=== PATIENT | female | born 1935 | race Caucasian/White ===

== ENCOUNTER → 2023-09-17 07:56 | Outpatient (REF) | payer OTHER, SELFPAY | LOC: MRI 07:56 | PROVIDERS: ATTENDING PHYSICIAN Internal Medicine; FAMILY PHYSICIAN Family Medicine | DX: S46.219A Strain of muscle, fascia and tendon of other parts of biceps, unspecified arm, initial encounter (principal) | CPT/HCPCS: 73218 ==

== ENCOUNTER → 2024-02-04 09:15 | Outpatient (REF) | payer OTHER, SELFPAY | LOC: RAD 09:15 | PROVIDERS: ATTENDING PHYSICIAN Internal Medicine; FAMILY PHYSICIAN Family Medicine | DX: M81.0 Age-related osteoporosis without current pathological fracture (principal); M25.562 Pain in left knee | CPT/HCPCS: 73564; 77080 ==

== ENCOUNTER 2025-05-03 12:22 | Emergency (ER) | payer OTHER, SELFPAY ==
[2025-05-03 12:38] VITALS: BP 161/91
[2025-05-03 13:07] LABS: Hematocrit 40.6 % (37.0-47.0); Hemoglobin 12.3 g/dL (12.0-16.0); Mean Corp Hgb Conc. 30.3 g/dL (33.0-37.0); Mean Corpuscular Volume 84.6 fL (81.0-99.0); Nucleated Red Blood Cells % 0 %; Platelet Count 311 10^3/uL (130-400); Red Cell Dist. Width 15.4 % (11.5-14.5)
[2025-05-03 13:18] LABS: INR 0.94; PT 12.9 Sec (11.4-14.6)
[2025-05-03 13:24] LABS: ALT (SGPT) 19 U/L (0-35); AST (SGOT) 30 U/L (14-36); Albumin 4.7 g/dl (3.5-5.0); Alkaline Phosphatase 89 U/L (38-126); Blood Urea Nitrogen 14 mg/dl (7-17); Calcium 10.2 mg/dl (8.4-10.2); Carbon Dioxide 24 mmol/L (22-30); Chloride 99 mmol/L (98-107); Glucose 108 mg/dl (70-99); Potassium 4.9 mmol/L (3.5-5.1); Sodium 134 mmol/L (135-145); Total Protein 7.6 g/dl (6.3-8.2); eGFR > 60.00
[2025-05-03 13:35] LABS: Troponin I < 0.012 ng/ml
--- NOTE | 2025-05-03 14:50 | ED.GENMED ---
History of Present Illness
General
Chief Complaint: Chest Pain
Source: patient
Time Seen by Provider: 05/03/25 14:39
History of Present Illness
History of Present Illness:
89-year-old female presents to the emergency department for evaluation with her son after she states she started to feel little bit lightheaded/vertiginous while in the shower and while washing her hair started to get a pain/discomfort on the left
side of her chest accompanied with sensation of feeling flushed and palpitations, currently feeling significantly improved. Patient notes that she had a similar incident about 2 weeks ago, at that time the symptoms were a little bit more prominent
but did not last as long. Patient did not take anything for her symptoms prior to arrival. She denies any other symptoms including fevers or recent illnesses, cough, abdominal pain, nausea or vomiting, bowel changes or urinary symptoms. No known
history of cardiac disease. No history of cardiac arrhythmia. Patient is not on any anticoagulant medication. Social history was otherwise noncontributory.
Past History
Past History
ED Past Medical History: Other (Raynaud's, RA stopped methotrexate 2 mos ago due to GI symptoms, supposed to start back but has chosen not to. Followed by Dr. Gamboa.)
ED Past Surgical History: Other (agree with documented PSHX)
Social History
Tobacco: Non-smoker
Alcohol: None
Drug: None
Personal:
Living: with family
Review of Systems
Review of Systems
All Other Systems: ROS reviewed and negative except as documented in HPI and ROS
Phy Exam
Physical Exam
Physical Exam:
GENERAL: Alert , in no apparent distress
EYE: clear conjunctiva b/l
HEAD: NCAT
ENT: o/p clr, mmm.
CARDIAC: Regular rate and rhythm .
LUNGS: Clear breath sounds bilaterally, no acute respiratory distress, no wheezes/rales/rhonchi
ABDOMEN: Soft, without focal tenderness, no r/g, no cvat
NEUROLOGICAL: Alert and oriented
SKIN: Warm and dry, skin intact.
MUSCULOSKELETAL: No edema, well perfused.
PSYCH: Normal and appropriate interaction.
Scores
Heart Failure Risk
Heart Failure Risk Score: Not Applicable
Heart Score for Chest Pain Patients
STEMI patient?: No
History: Slightly or Non-Suspicious
ECG: Normal
Age: >/= 65 years
Risk Factors: No Risk Factors
Troponin: </= Normal Limit
Heart Score for Chest Pain Patients: 2
Heart Score Risk: 2.5% MACE over next 6 weeks
Withdrawal Assessment of Alcohol
Withdrawal Assessment Completed?: Not applicable
Course
Orders/Labs/Results
Orders:
Orders
05/03/25 12:23
Electrocardiogram (*1) Urgent
Reason for Study: Chest Pain
EKG- Treatment ONCE
05/03/25 12:57
Complete Blood Count/With Diff Urgent
Comprehensive Metabolic Panel Urgent
Prothrombin Time Urgent
TSH Reflex To Free T4 Urgent
Troponin I Urgent
05/03/25 14:50
CR Chest - 2 Views Urgent
Comment:
Reason For Exam: palpitations, flushed, pain
05/03/25 15:53
Troponin I Urgent
Abnormal Lab Results
05/03/25
12:57
MCH 25.6 L pg
(27.0-31.0)
MCHC 30.3 L g/dL
(33.0-37.0)
RDW 15.4 H %
(11.5-14.5)
MPV 10.5 H fL
(7.4-10.4)
Lymphocytes % 19.5 L %
(20.5-51.1)
Sodium 134 L mmol/L
(135-145)
Glucose 108 H mg/dl
(70-99)
05/03/25 12:57
05/03/25 12:57
Vital Signs
Initial and Last Documented VS:
Initial Vital Signs
Temp Pulse Resp BP Pulse Ox
98.8 F 98 18 161/91 99
05/03/25 12:38 05/03/25 12:38 05/03/25 12:38 05/03/25 12:38 05/03/25 12:38
Last Documented Vital Signs
Temp Pulse Resp BP Pulse Ox
98.2 F 68 10 166/68 96
05/03/25 16:23 05/03/25 16:57 05/03/25 16:57 05/03/25 16:57 05/03/25 16:57
MDM/Problems Addressed
Differential Diagnosis Includes:
Cardiac arrhythmia
Valvular dysfunction
ACS
anxiety
Electrolyte imbalance
Muscular chest wall pain
GERD/gastritis
PE
dissection
MDM/Problems Addressed:
89-year-old female presenting to the ER for evaluation of lightheadedness, flushing sensation, generally feeling unwell, chest Discomfort. Symptoms much improved if not fully resolved at time of my exam. Patient is mildly hypertensive. Will
observe her blood pressure while in the ER. Plan to repeat troponin. Chest x-ray ordered. Disposition pending.
*Radiology
Radiology exam reviewed: radiology read reviewed
*Pulse Oximetry
SaO2: 99
Nasal Cannula flow liters per minute: 99
Oxygen Mode of Delivery: Room air
Patient hypoxic: no
*EKG
Heart Rate: 87
Rate: normal
Rhythm: sinus and PVC's
Ischemia: no ischemia
*State'[employer] Interpretation
Rate: normal
Heart Rate: 78
Rhythm: sinus
*Critical Care Note
Total Time (30-74mins, 75-104mins- exclusive of procedures): Not Applicable
Patient Management
Escalation/DeEscalation of care consider admission/obs:
Repeat troponin negative, blood pressure improved at time of discharge and patient remains asymptomatic. She will follow-up with her primary care provider this week. Aware of return precautions to the ER.
ED Attending Note
-
Portions of this chart may have been created with voice recognition software.� Occasional wrong word or��sound alike� substitutions may have occurred due to the inherent limitations of voice recognition software.
Discharge Plan
Departure
Patient Disposition: Home (Routine Discharge)
Date of Disposition: 05/03/25
Time of Disposition: 16:48
Patient with high blood pressure during this ER visit?: Yes
Discharge Problem:
Chest pain
Instructions: Chest Pain PCP Follow Up
Prescriptions:
No Action
levothyroxine 75 MCG tablet
75 mcg PO DAILY
sumatriptan succinate 50 MG tablet
50 mg PO PRN PRN (Reason: migraines)
[id number] K-lut [Centrum Silver Women] 1 EACH tablet
1 tab PO DAILY
hydrocodone-acetaminophen 1 TABLET tablet
1 tab PO Q4HPRN PRN (Reason: moderate to severe pain) Qty: 25 0RF
Referrals:
Alfredo Montemayor MD [Family Provider, Family Practice]
Interventions
Interventions:
*Risk Screen - Suicide Last Done: 05/03/25 12:42
*General Assessment Last Done: 05/03/25 12:42
*Neglect/Abuse Screening Last Done: 05/03/25 12:42
*ED- Fall Risk Assessment Last Done: 05/03/25 16:00
*ED COVID-19 Vaccine History Last Done: 05/03/25 12:42
*ED Influenza Vaccine History Last Done: 05/03/25 12:42
*Nursing Disposition Last Done: 05/03/25 17:00
ED- Cardiac Assessment Last Done: 05/03/25 14:43
Discharge Date and Time
Discharge Date/Time: 05/03/25 17:13
Print Language: URDU
[2025-05-03 14:51] VITALS: BP 193/74; BMI 23.8
[2025-05-03 15:00] VITALS: BP 182/70
[2025-05-03 16:20] VITALS: BP 185/76
[2025-05-03 16:45] LABS: Troponin I < 0.012 ng/ml
[2025-05-03 16:57] VITALS: BP 166/68
== END 2025-05-03 17:13 | disposition home or self-care (01) ==
LOC: EMR 12:22
PROVIDERS: Emergency Medicine; Physician Assistant Medical; EMERGENCY PHYSICIAN Emergency Medicine; FAMILY PHYSICIAN Family Medicine
DX: R07.9 Chest pain, unspecified (principal); R03.0 Elevated blood-pressure reading, without diagnosis of hypertension; I73.00 Raynaud's syndrome without gangrene; M06.9 Rheumatoid arthritis, unspecified
CPT/HCPCS: 99284; 71046; 80053; 84443; 84484; 85025; 85610; 93005